=== PATIENT | male | born 1980 | race Caucasian/White ===

== ENCOUNTER → 2016-07-12 | Outpatient (CLI) | payer OTHER ==
--- OUTSIDE RECORDS SUMMARY | 2016-07-12 14:26 | XMS REPORT | Continuity of Care Document ---
Author Author [facility] Organization [facility] Address Unknown Phone Unavailable Allergies Medications Problems Procedures Results Encounters ACCT No. Visit Date/Time Discharge Status Pt. Type Provider Facility Loc./Unit Complaint [id number] 08/14/2013 11:49:00 2013 23:59:59 CLS Outpatient [id number] 08/14/2013 11:37:00 2013 11:37:00 DIS Outpatient
--- NOTE | 2016-07-12 17:54 | Diagnostic Imaging Report ---
Ultrasound of the soft tissues of the neck. INDICATION: Lump in the left side of the neck. FINDINGS: There is a 1.1 x 0.5 x 0.9 cm hypoechoic lesion seen in the left side of the neck superior to the level of the thyroid and appears to be superficial to the strap muscles of uncertain etiology. No internal vasculature demonstrated with color Doppler. IMPRESSION: Indeterminate 1.1 cm hypoechoic nodule in the subcutaneous tissues of the left side of the neck above the level of the thyroid gland and superficial to the strap muscles. Reactive lymph node is a possibility. Correlate clinically and with followup studies. Dictated by: Dictated on workstation # [id number]
== END ==
LOC: RAD 14:22
PROVIDERS: ATTEND Nurse Practitioner Family
DX: E04.1 Nontoxic single thyroid nodule (principal)
CPT/HCPCS: 76536

== ENCOUNTER 2019-11-19 09:35 | Emergency (ER) | payer OTHER ==
[~2019-11-19] VITALS: Ht 172 cm; Wt 77.0 kg
[2019-11-19] MEDS ORDERED: fentaNYL INJECTION 100 MCG/2 ML AMP IVP STA (09:43)
[2019-11-19] MEDS ORDERED: NS IV 1000 ML 1,000 ML IV STA (09:43)
[2019-11-19] MEDS ORDERED: KETOROLAC 30 MG/ML VIAL IVP STA (09:43)
[2019-11-19] MEDS ORDERED: ONDANSETRON 4 MG/2 ML (SDV) Z0FRAN IVP ONE (09:45)
[2019-11-19 09:58] LABS: BASOPHILS % (AUTO) 0 % (0-10); EOSINOPHILS # (AUTO) 0.1 10^3/uL (0.0-0.3); EOSINOPHILS % (AUTO) 2 % (0-10); HEMATOCRIT 44 % (40-54); LYMPHOCYTES # (AUTO) 2.9 X 10^3 (1.0-4.0); LYMPHOCYTES % (AUTO) 37 % (12-44); MEAN CORPUSCULAR HEMOGLOBIN 31 PG (25-34); MEAN CORPUSCULAR HGB CONC 34 G/DL (32-36); MEAN CORPUSCULAR VOLUME 92 FL (80-99); MEAN PLATELET VOLUME 9.6 FL (7.4-10.4); MONOCYTES % (AUTO) 13 % (0-12); NEUTROPHILS # (AUTO) 3.8 X 10^3 (1.8-7.8); NEUTROPHILS % (AUTO) 49 % (42-75); PLATELET COUNT 327 10^3/uL (130-400); RED CELL DISTRIBUTION WIDTH 13.1 % (10.0-14.5); WHITE BLOOD COUNT 7.9 10^3/uL (4.3-11.0)
[2019-11-19 10:15] LABS: ALBUMIN 4.6 GM/DL (3.2-4.5); CHLORIDE 105 MMOL/L (98-107); POTASSIUM 4.1 MMOL/L (3.6-5.0); SODIUM 139 MMOL/L (135-145)
[2019-11-19 10:16] LABS: CALCIUM 9.5 MG/DL (8.5-10.1)
[2019-11-19 10:17] LABS: GLUCOSE 107 MG/DL (70-105)
[2019-11-19 10:18] LABS: TOTAL PROTEIN 7.3 GM/DL (6.4-8.2)
--- OUTSIDE RECORDS SUMMARY | 2019-11-19 10:18 | XMS REPORT ---
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
--- OUTSIDE RECORDS SUMMARY | 2019-11-19 10:18 | XMS REPORT | Continuity of Care Document ---
Author Organization Unknown Address Unknown Phone Unavailable Allergies There is no data. Medications There is no data. 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 Results Test Result Range Comprehensive metabolic panel - 11/19/19 09:44 Serum or plasma sodium measurement (moles/volume) 139 mmol/L 135-145 Serum or plasma potassium measurement (moles/volume) 4.1 mmol/L 3.6-5.0 Serum or plasma chloride measurement (moles/volume) 105 mmol/L 98-107 Serum or plasma glucose measurement (mass/volume) 107 mg/dL 70-105 Serum or plasma calcium measurement (mass/volume) 9.5 mg/dL 8.5-10.1 Serum or plasma protein measurement (mass/volume) 7.3 g/dL 6.4-8.2 Serum or plasma albumin measurement (mass/volume) 4.6 g/dL 3.2-4.5 Encounters ACCT No. Visit Date/Time Discharge Status Pt. Type Provider Facility Loc./Unit Complaint [id number] 07/12/2016 14:22:00 017 23:59:59 CLS Outpatient ZHANG DEE APRN [facility] RAD THYROID CYST [id number] 08/14/2013 11:49:00 014 23:59:59 CLS Outpatient NICOLE CRANE MD [facility] LAB INFERTILITY [id number] 08/14/2013 11:37:00 014 11:37:00 DIS Outpatient ROSA MARIA DENTON, NICOLE Burger [facility] LAB INFERTILITY [id number] 11/19/2019 10:15:00 Document Registration
--- OUTSIDE RECORDS SUMMARY | 2019-11-19 10:18 | XMS REPORT ---
Author Author Jamal DEE [facility] Address [address] [place] [address] Care Team Providers Care Home Management Supervisor Name Role Phone ZHANG DEE Unavailable PROBLEMS Type Condition ICD9-CM Code [id number] Code Onset Dates Condition S tatus SNOMED Code Problem Thyroid cyst E04.1 Active 5325003 4 ALLERGIES No Information SOCIAL HISTORY Never Assessed PLAN OF CARE VITAL SIGNS MEDICATIONS Unknown Medications RESULTS No Results PROCEDURES No Known procedures IMMUNIZATIONS No Known Immunizations
[2019-11-19 10:19] LABS: BILIRUBIN,TOTAL 0.6 MG/DL (0.1-1.0); CARBON DIOXIDE 23 MMOL/L (21-32)
--- NOTE | 2019-11-19 10:19 | ED Abdominal Pain ---
General Chief Complaint: Abdominal/GI Problems Stated Complaint: KIDNEY STONES Nursing Triage Note: PT TO ED 5 PT CO OF SUDDEN ONSET SEVERE ABD PAIN. L LOWER ABD 10/10 Sepsis Screen: No Definite Risk Source of Information: Patient Exam Limitations: No Limitations History of Present Illness Date Seen by Provider: Nov 19, 2019 Time Seen by Provider: 09:45 Initial Comments Here with report of acute onset of severe left-sided abdominal pain that started about 20 minutes prior to arrival. States the pain is very intense and he's never had anything like this before. Otherwise healthy and has no significant medical problems. Denies fever, chills, dysuria, blood in his urine or stool. Pain is associated with nausea due to the pain. Timing/Duration: 1/2 Hour Severity/Quality: Moderate, Severe Location: LLQ, Flank (left) Radiation: No Radiation Activities at Onset: None Modifying Factors: Improves With Other (no aggravating or relieving factors) Associated Symptoms: No Back Pain, No Chest Pain, No Diaphoresis, No Fever/Chills; Nausea/Vomiting; No Shortness of Air, No Weakness Allergies and Home Medications Allergies Coded Allergies: No Known Drug Allergies (Unverified , 11/19/19) Patient Home Medication List Home Medication List Reviewed: Yes Review of Systems Review of Systems Constitutional: see HPI; No chills, No fever EENTM: No Symptoms Reported Respiratory: Denies Cough, Denies Shortness of Air Cardiovascular: Denies Chest Pain, Denies Edema Gastrointestinal: Diarrhea, Nausea; Denies Rectal Bleeding, Denies Vomiting Genitourinary: Flank Pain; Denies Hematuria; Pain Musculoskeletal: no symptoms reported Skin: no symptoms reported All Other Systems Reviewed Negative Unless Noted: Yes Past Zvawnif-Emcrys-Spkgpt Hx Past Med/Social Hx: Reviewed Nursing Past Med/Soc Hx Patient Social History Alcohol Use: Rarely Uses Recreational Drug Use: Yes (pot) Smoking Status: Never a Smoker Recent Foreign Travel: No Contact w/Someone Who Travel: No Recent Infectious Disease Expo: No Recent Hopitalizations: No Seasonal Allergies Seasonal Allergies: No Past Medical History Surgeries: No Respiratory: No Cardiac: No Neurological: No Genitourinary: No Gastrointestinal: No Musculoskeletal: No Endocrine: No HEENT: No Cancer: No Psychosocial: No Integumentary: No Family Medical History Reviewed Nursing Family Hx Physical Exam Vital Signs Vital Signs - First Documented 7/27/20 09:35 Temp 36.5 Pulse 45 Resp 28 B/P (MAP) 153/100 (117) Pulse Ox 100 Capillary Refill : Less Than 3 Seconds Height/Weight/BMI Height: '" Weight: lbs. oz. kg; 26.00 BMI Method: General Appearance: WD/WN, no apparent distress Respiratory: lungs clear, normal breath sounds Cardiovascular: regular rate, rhythm, no murmur Gastrointestinal: soft, tenderness (left lower quadrant and left flank) Extremities: normal range of motion, non-tender Back: normal inspection, no CVA tenderness, no vertebral tenderness Neurologic/Psychiatric: alert, oriented x 3 Skin: normal color, warm/dry Progress/Results/Core Measures Results/Orders Lab Results Laboratory Tests Test 11/19/19 09:44 11/19/19 10:40 Range/Units White Blood Count 7.9 4.3-11.0 10^3/uL Red Blood Count 4.83 4.35-5.85 10^6/uL Hemoglobin 15.0 13.3-17.7 G/DL Hematocrit 44 40-54 % Mean Corpuscular Volume 92 80-99 FL Mean Corpuscular Hemoglobin 31 25-34 PG Mean Corpuscular Hemoglobin Concent 34 32-36 G/DL Red Cell Distribution Width 13.1 10.0-14.5 % Platelet Count 327 130-400 10^3/uL Mean Platelet Volume 9.6 7.4-10.4 FL Neutrophils (%) (Auto) 49 42-75 % Lymphocytes (%) (Auto) 37 12-44 % Monocytes (%) (Auto) 13 H 0-12 % Eosinophils (%) (Auto) 2 0-10 % Basophils (%) (Auto) 0 0-10 % Neutrophils # (Auto) 3.8 1.8-7.8 X 10^3 Lymphocytes # (Auto) 2.9 1.0-4.0 X 10^3 Monocytes # (Auto) 1.0 0.0-1.0 X 10^3 Eosinophils # (Auto) 0.1 0.0-0.3 10^3/uL Basophils # (Auto) 0.0 0.0-0.1 10^3/uL Sodium Level 139 135-145 MMOL/L Potassium Level 4.1 3.6-5.0 MMOL/L Chloride Level 105 98-107 MMOL/L Carbon Dioxide Level 23 21-32 MMOL/L Anion Gap 11 5-14 MMOL/L Blood Urea Nitrogen 10 7-18 MG/DL Creatinine 1.10 0.60-1.30 MG/DL Estimat Glomerular Filtration Rate > 60 BUN/Creatinine Ratio 9 Glucose Level 107 H 70-105 MG/DL Calcium Level 9.5 8.5-10.1 MG/DL Corrected Calcium 8.5-10.1 MG/DL Total Bilirubin 0.6 0.1-1.0 MG/DL Aspartate Amino Transf (AST/SGOT) 23 5-34 U/L Alanine Aminotransferase (ALT/SGPT) 47 0-55 U/L Alkaline Phosphatase 70 40-136 U/L C-Reactive Protein High Sensitivity 0.17 0.00-0.50 MG/DL Total Protein 7.3 6.4-8.2 GM/DL Albumin 4.6 H 3.2-4.5 GM/DL Urine Color YELLOW Urine Clarity CLEAR Urine pH 5.5 5-9 Urine Specific [place] >=1.030 1.016-1.022 Urine Protein NEGATIVE NEGATIVE Urine Glucose (UA) NEGATIVE NEGATIVE Urine Ketones NEGATIVE NEGATIVE Urine Nitrite NEGATIVE NEGATIVE Urine Bilirubin NEGATIVE NEGATIVE Urine Urobilinogen 0.2 < = 1.0 MG/DL Urine Leukocyte Esterase NEGATIVE NEGATIVE Urine RBC (Auto) 3+ H NEGATIVE Urine RBC 25-50 H /HPF Urine WBC RARE /HPF Urine Crystals NONE /LPF Urine Bacteria TRACE /HPF Urine Casts NONE /LPF Urine Mucus MODERATE H /LPF Urine Culture Indicated NO My Orders Orders - FABIANO COLBY MD Cbc With Automated Diff (11/19/19 09:43) Comprehensive Metabolic Panel (11/19/19 09:43) Hs C Reactive Protein (11/19/19 09:43) Ua Culture If Indicated (11/19/19 09:43) Fentanyl Injection (Sublimaze Injection (11/19/19 09:43) Ketorolac Injection (Toradol Injection) (11/19/19 09:43) Ondansetron Injection (Zofran Injectio (11/19/19 09:45) Ns Iv 1000 Ml (Sodium Chloride 0.9%) (11/19/19 09:43) Ed Iv/Invasive Line Start (11/19/19 09:43) Ketamine Syringe (Ed Only) (Ketamine Syr (11/19/19 10:45) Ct Abd/Pelvis Wo(Kidney Stone) (11/19/19 11:08) Hydromorphone Injection (Dilaudid Inject (11/19/19 11:20) Ketamine Syringe (Ed Only) (Ketamine Syr (11/19/19 12:00) Hydromorphone Injection (Dilaudid Inject (11/19/19 13:00) Ns Iv 1000 Ml (Sodium Chloride 0.9%) (11/19/19 12:51) Phenazopyridine Tablet (Pyridium Tablet) (11/19/19 13:15) Medications Given in ED Current Medications Medications Dose Ordered Sig/Clark Route Start Time Stop Time Status Last Admin Dose Admin Hydromorphone HCl 0.5 mg ONCE ONCE IV 11/19/19 11:30 11/19/19 11:31 DC 11/19/19 11:26 0.5 MG Hydromorphone HCl 1 mg ONCE ONCE IV 11/19/19 13:00 11/19/19 13:01 DC 11/19/19 13:04 1 MG Ketamine HCl 25 mg ONCE ONCE IV 11/19/19 10:45 11/19/19 10:46 DC 11/19/19 10:45 25 MG Ketamine HCl 25 mg ONCE ONCE IV 11/19/19 12:00 11/19/19 12:01 DC 11/19/19 12:03 25 MG Ondansetron HCl 4 mg ONCE ONCE IVP 11/19/19 09:45 11/19/19 09:46 DC 11/19/19 09:50 4 MG Phenazopyridine HCl 100 mg ONCE ONCE PO 11/19/19 13:15 11/19/19 13:16 11/19/19 13:11 100 MG Sodium Chloride 1,000 ml @ STK-MED ONCE .ROUTE 11/19/19 12:51 11/19/19 12:55 DC 11/19/19 13:04 999 MLS/HR Vital Signs/I&O 11/19/19 09:35 Temp 36.5 Pulse 45 Resp 28 B/P (MAP) 153/100 (117) Pulse Ox 100 Blood Pressure Mean: 117 Progress Progress Note : Progress Note Seen and evaluated. IV, labs, UA, and will saline 1 L bolus, Zofran 4 mg IV, Toradol 30 mg IV and fentanyl 75 g IV ordered. Monitor patient. 1300: Initial dosing of pain medicine ineffective. Dilaudid 0.5 mg IV given. He also received ketamine 25 mg IV twice. Ultimately was able to give urine which did show blood. CT abdomen and pelvis ordered which did show a 2 mm stone near the bladder neck. Otherwise no significant findings. Pain has persisted. We will give Dilaudid 1 mg IV and normal saline 1 L bolus. pyridium 100 mg by mouth ordered. Monitor patient. Diagnostic Imaging Diagonstic Imaging: CT Plain Films/CT/US/NM/MRI: abdomen, pelvis Comments NAME: VICKI GARCIA [facility] REC#: [id number] PT STATUS: REG ER : 1980 PHYSICIAN: FABIANO COLBY MD ADMIT DATE: 11/19/19/ER Draft Date of Exam:11/19/19 CT ABD/PELVIS WO(KIDNEY STONE) PROCEDURE: CT urinary tract, rule out kidney stone. TECHNIQUE: Multiple contiguous axial images were obtained through the abdomen and pelvis without the use of intravenous contrast. Auto Exposure Controls were utilized during the CT exam to meet ALARA standards for radiation dose reduction. INDICATION: Sudden onset of severe abdominal pain. COMPARISON: No prior studies are available for comparison. FINDINGS: The lung bases are clear. The liver and gallbladder are unremarkable. No biliary ductal dilatation is identified. The pancreas and spleen are unremarkable. No adrenal mass is detected. No renal calculi are identified. There is very minimal prominence to the left renal collecting system and left ureter traced into the pelvis where there is a tiny approximately 2 mm calculus in the distal left ureter just proximal to the UVJ. No bladder calculi are seen. The aorta is non-aneurysmal. The bowel loops are of normal caliber. No obstruction is seen. There is no free fluid or fluid collection. The prostate is unremarkable. The bony structures are nonacute. IMPRESSION: There is a 2 mm distal left ureteric calculus producing very mild hydroureteronephrosis. No other significant abnormality is detected. Dictated on workstation # [id number] Dict: 11/19/19 1246 Trans: 11/19/19 1250 [id number] Interpreted by: FELTON ENGEL MD Electronically signed by: Departure Impression Primary Impression: Left ureteral stone Disposition: 01 HOME, SELF-CARE Condition: Stable Departure-Patient Inst. Decision time for Depature: 13:15 Referrals: NO,LOCAL PHYSICIAN (PCP) Primary Care Physician ANURADHA RIOJAS MD Patient Instructions: Kidney Stones (DC) Add. Discharge Instructions: All discharge instructions reviewed with patient and/or family. Voiced understanding. Drink plenty of fluids. You may take ibuprofen 600 mg every 8 hours as needed for pain. He may take other pain medications as prescribed. Follow-up with Dr. Riojas for recheck and further evaluation. Call his office for appointment. Return for worse pain, weakness, breathing problems, fever or other concerns as needed. Scripts Tamsulosin HCl (Flomax) 0.4 Mg Cap 0.4 MG PO DAILY, #7 CAP 0 Refills Prov: FABIANO COLBY MD 11/19/19 Phenazopyridine HCl (Pyridium) 100 Mg Tablet 100 MG PO TID PRN for PAIN-MILD (1-4), #6 TAB Prov: FABIANO COLBY MD 11/19/19 Cephalexin (Cephalexin) 500 Mg Tablet 500 MG PO BID, #10 TAB 0 Refills Prov: FABIANO COLBY MD 11/19/19 Hydrocodone/Acetaminophen (Hydrocodone-Acetamin 7.5-325) 1 Each Tablet 1 EACH PO Q6H PRN for PAIN-MODERATE (5-7), #15 TAB 0 Refills Prov: FABIANO COLBY MD 11/19/19 FABIANO COLBY MD Nov 19, 2019 10:19
[2019-11-19 10:21] LABS: ALKALINE PHOSPHATASE 70 U/L (40-136); GFR ESTIMATED > 60
[2019-11-19 10:22] LABS: BUN/CREATININE RATIO 9
[2019-11-19 10:24] LABS: ALANINE AMINOTRANSFERASE 47 U/L (0-55)
[2019-11-19] MEDS ORDERED: KETAMINE/NaCl 50 MG/5 ML SYRINGE (ED ONLY) IV ONE ×2 (10:45→12:00)
[2019-11-19 10:48] LABS: BILIRUBIN,URINE NEGATIVE (NEGATIVE); CLARITY,URINE CLEAR; COLOR,URINE YELLOW; GLUCOSE, URINE (UA) NEGATIVE (NEGATIVE); KETONES,URINE NEGATIVE (NEGATIVE); LEUKOCYTE ESTERASE ,URINE NEGATIVE (NEGATIVE); NITRITE,URINE NEGATIVE (NEGATIVE); PH,URINE 5.5 (5-9); PROTEIN,URINE NEGATIVE (NEGATIVE)
[2019-11-19 11:03] LABS: BACTERIA,URINE TRACE /HPF; RBC,URINE 25-50 /HPF; WBC,URINE RARE /HPF
[2019-11-19] MEDS ORDERED: HYDROmorphone 2 MG/ML VIAL (DILAUDID) ONE (11:20)
[2019-11-19] MEDS ORDERED: HYDROmorphone 2 MG/ML VIAL (DILAUDID) IV ONE ×3 (11:30→13:00)
--- NOTE | 2019-11-19 12:50 | Diagnostic Imaging Report ---
PROCEDURE: CT urinary tract, rule out kidney stone. TECHNIQUE: Multiple contiguous axial images were obtained through the abdomen and pelvis without the use of intravenous contrast. Auto Exposure Controls were utilized during the CT exam to meet ALARA standards for radiation dose reduction. INDICATION: Sudden onset of severe abdominal pain. COMPARISON: No prior studies are available for comparison. FINDINGS: The lung bases are clear. The liver and gallbladder are unremarkable. No biliary ductal dilatation is identified. The pancreas and spleen are unremarkable. No adrenal mass is detected. No renal calculi are identified. There is very minimal prominence to the left renal collecting system and left ureter traced into the pelvis where there is a tiny approximately 2 mm calculus in the distal left ureter just proximal to the UVJ. No bladder calculi are seen. The aorta is non-aneurysmal. The bowel loops are of normal caliber. No obstruction is seen. There is no free fluid or fluid collection. The prostate is unremarkable. The bony structures are nonacute. IMPRESSION: There is a 2 mm distal left ureteric calculus producing very mild hydroureteronephrosis. No other significant abnormality is detected. Dictated by: Dictated on workstation # [id number]
[2019-11-19] MEDS ORDERED: NS IV 1000 ML 1,000 ML ONE (12:51)
[2019-11-19] MEDS ORDERED: PHENAZOPYRIDINE 100 MG (PYRIDIUM) TABLET PO ONE (13:15)
[2019-11-19] MEDS ORDERED: PHEN-639 PO (13:19)
[2019-11-19] MEDS ORDERED: HYDR-3817 PO (13:19)
[2019-11-19] MEDS ORDERED: TMSL.4C PO (13:19)
[2019-11-19] MEDS ORDERED: CEPH500T PO (13:19)
--- NOTE | 2019-11-19 13:56 | NUR ---
Patient rates pain at a 7 out of 10. He is able to void a small amount of dark colored urine.
[2019-11-19] MEDS ORDERED: HYDROcodone/APAP 7.5 MG/325 MG (LORTAB, LORCET PLUS) TABLET PO STA (14:12)
[2019-11-19 14:25] VITALS: BP 135/83
== END 2019-11-19 14:26 | disposition home or self-care (01) ==
LOC: EDUNIT# 09:40 → ER 09:43
DX: N13.2 Hydronephrosis with renal and ureteral calculous obstruction (principal)
CPT/HCPCS: 36415; 74176; 80053; 81000; 85025; 86141